=== PATIENT | female | born 1950 | race Caucasian/White ===

== ENCOUNTER → 2024-10-13 | Outpatient (CLI) | payer OTHER ==
--- NOTE | 2024-10-13 11:44 | HMCIMG ---
CHEST 2VWS HISTORY: Chronic cough COMPARISON: None FINDINGS: Frontal and lateral projections of the chest were obtained. There is no acute pulmonary infiltrates or failure. The heart is not enlarged. Aortic calcifications are seen. Degenerative changes are seen of the thoracolumbar spine. IMPRESSION: 1. No acute pulmonary infiltrates.
== END | disposition home or self-care (01) ==
LOC: RAH 10:00
PROVIDERS: ATTEND Internal Medicine
DX: R05.3 Chronic cough (principal); I70.0 Atherosclerosis of aorta; M47.815 Spondylosis without myelopathy or radiculopathy, thoracolumbar region
CPT/HCPCS: 71046

== ENCOUNTER 2024-11-09 18:44 | Emergency (ER) | payer OTHER ==
[~2024-11-09] VITALS: Ht 162.6 cm; Wt 68.0 kg
[2024-11-09 19:14] VITALS: BP 151/90; PULSE 86; RESP 20; TEMP 98
[2024-11-09 19:34] VITALS: O2SAT 99
--- NOTE | 2024-11-09 20:00 | NUR ---
PER DR. MONTGOMERY, APPLY SUGAR TONG SPLINT TO RIGHT ANKLE UP TO MID CALF.
[2024-11-09] MEDS: traMADol HCL 50 MG TABLET PO ONE (20:26)
--- NOTE | 2024-11-09 20:31 | ERN ---
General Chief Complaint: Ankle Problem Stated Complaint: MECHANICAL FALL, ANKLE INJURY Time Seen by MD: 19:08 Source: patient History of Present Illness Initial Comments Patient is a 74-year-old on her right lower extremity. Patient states that earlier today she slipped twisting her right ankle. She states that the pain is localized to the right ankle and there is tenderness on palpation and pain on ambulation. Allergies: Coded Allergies: No Known Allergies (Unverified Allergy, Unknown, 11/09/24) Past Medical History Past Medical History: Anxiety, High Cholesterol, Hypertension Past Surgical History: Hysterectomy, Tonsillectomy, Other Surgical History Other: THYROIDECTOMY ROS Dictation CONSTITUTIONAL: No chills, no fever, no weakness, no diaphoresis, no malaise. HEAD/FACE: No signs of trauma. EENT: No eye pain, no blurred vision, no tearing, no double vision, no ear pain, no ear discharge, no nose pain, no nasal congestion, no throat pain, no throat swelling, no mouth pain. RESPIRATORY: No cough, no orthopnea, no SOB, no stridor, no wheezing. CARDIOVASCULAR: No chest pain, no edema, no palpitations, no syncope. GASTROINTESTINAL/ABDOMINAL: No abdominal pain, no constipation, no diarrhea, no nausea, no vomiting. GENITOURINARY: No abnormal discharge, no dysuria, no frequent urination, no hematuria. No complaints of pain in the genitals. MUSCULOSKELETAL: No back pain, no gout, joint pain, joint swelling, no muscle pain, no muscle stiffness, no neck pain. INTEGUMENTARY: No change in color, no change in hair/nails, no dryness, no lesion, no lumps, no rash. NEUROLOGICAL/PSYCH: No anxiety, not depressed, no emotional problem, no headache, no numbness, no pre-existing deficit, no history of seizures, no tremors, no weakness. HEMATOLOGIC/LYMPHATIC: Not anemic, no history of blood clots, no apparent bleeding, no bruising, glands not swollen. All Systems Negative, Except as Noted. Physical Exam Physical Exam Dictation VITAL SIGNS: Reviewed. GENERAL APPEARANCE: Alert, oriented x3, no acute distress, obese. HEAD AND FACE: Non-traumatic. EYES: PERRL, pink conjunctivas, eyelid no trauma, anterior chamber clear. EARS: Pinnas intact and no signs of trauma or erythema. Ear canals clear and no discharge. TMs no erythema. NOSE: No discharge, no bleeding. OROPHARYNX: Mouth normal, teeth no caries, tongue pink. Pharynx clear, no erythema. Tonsils no exudates, no abscesses noted. Mucous membrane moist. NECK: Supple, non-tender, no thyromegaly, no masses, no JVD, no bruits. BREAST: Deferred. CHEST: No tenderness, no crepitus, no paradoxical movement, no retractions. LUNGS: Clear, well-ventilated, symmetric, no rales, no wheezing, no rhonchi, no stridor, good breath sounds bilaterally. HEART: Regular rate, regular rhythm, no murmur, no gallops. VASCULAR: No peripheral edema. ABDOMEN: Soft, positive bowel sounds, nondistended, no guarding, nontender, no rebound, no masses no hepatomegaly, no splenomegaly, no Elise's sign, no hernias. RECTAL: Deferred. GENITAL: Deferred. NEUROLOGICAL: Normal speech, gross motor function intact, gross sensory function intact. MUSCULOSKELETAL: Neck nontender, full range of motion, back nontender, full range of motion. EXTREMITIES: Nontender, full range of motion. Right ankle pain on palpation, swelling, SKIN: Color pink, dry, no turgor, no rash, no lacerations, no abrasions, no contusions. LYMPHATICS: Deferred. Results Laboratory and Microbiology Labs Reviewed?: Yes EKG/XRAY/US/CT/MRI X-RAY Comment X-ray right ankle-fibular fracture, bimalleolar fracture MDM MDM: Differential diagnosis: Bimalleolar fracture, fibular fracture, Patient is a 74-year-old female coming in to be evaluated for right ankle pain. On x-ray there is a bimalleolar fracture, fibular fracture. Ankle splint was applied which improved with pain. Patient will be discharged in stable condition with diagnosis of bimalleolar fracture of the right ankle. ED Course Orders Procedure Category Date Status Time Ankle Comp 3vws Rt RAD 11/09/24 Taken 19:34 Tramadol Hcl (Ultram) PHA 11/09/24 Complete 20:30 Current Medications Medications (Trade) Dose Ordered Sig/Carlo Route PRN Reason Start Time Stop Time Status Last Admin Dose Admin Tramadol HCl (UltRAM) 50 mg ONCE ONCE PO 11/09/24 20:30 11/09/24 20:31 DC 11/09/24 20:26 Vital Signs Date Time Temp Pulse Resp B/P (MAP) Pulse Ox O2 Delivery O2 Flow Rate FiO2 11/09/24 19:34 97.7 81 18 165/81 99 Room Air* 0 21 11/09/24 19:14 98.1 86 20 151/90 98 Room Air DX & DISP Disposition: Discharge Departure Impression: Primary Impression: Bimalleolar fracture of right ankle Additional Impression: Closed right fibular fracture Condition: Stable Additional Instructions: FOLLOW-UP WITH PRIMARY CARE PROVIDER IN 1 TO 2 DAYS. TAKE MEDICATIONS DIRECTED HERE IN THE EMERGENCY ROOM. OKAY TO CONTINUE HOME MEDICATIONS UNLESS OTHERWISE DISCUSSED DURING YOUR VISIT IN THE EMERGENCY ROOM TODAY. RETURN TO YOUR NEAREST EMERGENCY ROOM IF SYMPTOMS WORSEN OR IF THERE IS NO IMPROVEMENT. CALL 911 IF YOU NEED IMMEDIATE ASSISTANCE. TAKE TYLENOL [id number] NEEDED AND IF NO CONTRAINDICATIONS ARE PRESENT. INCREASE ORAL HYDRATION. A WOUND CULTURE OR URINE CULTURE WAS ORDERED HERE IN THE EMERGENCY ROOM DEPARTMENT PLEASE FOLLOW-UP WITH PRIMARY CARE PROVIDER AND ADVISE THEM TO GET REPEAT PORTS FROM OUR FACILITY. IF YOU HAD ANY EMMA WRAP/SPLINTS THAT WERE APPLIED HERE, PLEASE DO NOT REMOVE THEM UNTIL YOU SEE YOUR PRIMARY CARE OR SPECIALTY. Referrals: Referrals: BE COOK MD (PCP) DUKE PARR MD Time of Disposition: 20:31 GUMARO MONTGOMERY MD Nov 09, 2024 20:31
[2024-11-09] MEDS ORDERED: ACET-2079 PO (20:46)
--- NOTE | 2024-11-09 20:51 | HMCIMG ---
ANKLE COMP 3VWS RT CLINICAL HISTORY: fall COMPARISON: None TECHNIQUE: AP lateral and oblique images were obtained. FINDINGS: There is a oblique one half shaft displaced fracture of the lateral malleolus with a transverse one cortical width displaced fracture of the medial malleolus. There is no obvious ankle subluxation or dislocation. The talus and calcaneus are intact. The soft tissues appear edematous. IMPRESSION: Displaced bimalleolar ankle fracture.
== END 2024-11-09 21:12 | disposition home or self-care (01) ==
LOC: EDH 18:44
DX: S82.841A Displaced bimalleolar fracture of right lower leg, initial encounter for closed fracture (principal); S82.491A Other fracture of shaft of right fibula, initial encounter for closed fracture; E78.00 Pure hypercholesterolemia, unspecified; I10 Essential (primary) hypertension; F41.9 Anxiety disorder, unspecified; Z90.710 Acquired absence of both cervix and uterus; Z98.890 Other specified postprocedural states; W01.0XXA Fall on same level from slipping, tripping and stumbling without subsequent striking against object, initial encounter; Y93.89 Activity, other specified; Y92.89 Other specified places as the place of occurrence of the external cause; Y99.8 Other external cause status
CPT/HCPCS: 29515; 73610; 99284

== ENCOUNTER → 2024-11-15 | Outpatient (CLI) | payer OTHER ==
[~2024-11-15] MED LIST: ACET-2079 PO; ATOR10 PO; DILT120T PO; LEVO100C4 PO; SERT-440 PO
--- NOTE | 2024-11-15 15:28 | HMCIMG ---
CHEST 2VWS HISTORY: Hypertension COMPARISON: 10/13/2024 FINDINGS: Frontal and lateral projections of the chest were obtained. There is no acute pulmonary infiltrates or failure. The heart is not enlarged. No evidence of aortic calcification is seen. Prominent interstitial markings are seen. Degenerative changes are seen of the thoracolumbar spine. IMPRESSION: 1. No acute pulmonary infiltrates.
== END | disposition home or self-care (01) ==
LOC: RAH 14:56
PROVIDERS: ATTEND Internal Medicine
DX: Z01.818 Encounter for other preprocedural examination (principal); I12.9 Hypertensive chronic kidney disease with stage 1 through stage 4 chronic kidney disease, or unspecified chronic kidney disease; M47.815 Spondylosis without myelopathy or radiculopathy, thoracolumbar region; N18.9 Chronic kidney disease, unspecified
CPT/HCPCS: 71046